=== PATIENT | female | born 1990 | race Caucasian/White ===

== ENCOUNTER 2017-02-22 13:29 | Outpatient (CLI) | payer OTHER ==
--- NOTE | 2017-02-22 14:37 | ULT ---
ULTRASOUND THYROID STANDARD: HISTORY: Thyroid nodule. COMPARISON: None. FINDINGS: The background architecture is normal. The isthmus measures 2 mm in AP dimension. The right lobe me asures 4 x 1.2 x 1.5 cm and the left lobe measures 4 x 1.1 x 1.5 cm. Anterior to the isthmus but not definitely within the parenchyma itself is a [id number], 5 mm hypodense nodule. This is measur ed on the examination, although there is no thyroid tissue anterior to it. This does have the echote xture of adjacent muscle. IMPRESSION: A 5 mm hypodense, [id number]-axhe-bjkj nodule either within or anterior to the isthmus, which has the same echotexture of adjacent muscle. This may be within the isthmus or an accessory slip of muscle. Thi s does warrant fine needle aspiration. Given its small size, per TIRADS criteria, followup is not ne cessary. POS: [facility]
== END 2017-02-22 13:30 | disposition home or self-care (01) ==
LOC: ULT 13:29
PROVIDERS: ATTEND Internal Medicine Endocrinology, Diabetes & Metabolism
DX: E04.1 Nontoxic single thyroid nodule (principal)
CPT/HCPCS: 76536